=== PATIENT | male | born 1980 | race Caucasian/White ===

== ENCOUNTER 2023-06-10 14:52 | Emergency (ER) | payer OTHER ==
[~2023-06-10] VITALS: Ht 180.3 cm; Wt 112.0 kg
[2023-06-10 15:23] VITALS: BP 161/91; PULSE 116; RESP 18; TEMP 100; O2SAT 98
[2023-06-10] MEDS ORDERED: LIDOCAINE 1% HCL (LOCAL ANESTH.) INJ 20ML MDV IJ ONE (17:30)
[2023-06-10] MEDS ORDERED: PIPERACILLIN-TAZOB 3.375GM 100 ML IV ONE (17:30)
[2023-06-10] MEDS ORDERED: MUPI2OIN2 EX (18:13)
[2023-06-10] MEDS ORDERED: CEPH500C PO (18:13)
[2023-06-10] MEDS ORDERED: IBUP1TAB5 PO (18:13)
[2023-06-10] MEDS ORDERED: ceFAZolin IM 1GM/2.5ML STERILE WATER IM ONE (18:15)
[2023-06-10] MEDS ORDERED: NEOMYCIN-BACITRACIN-POLYM UNITDOSE PKG TOP OINT TOP ONE (18:15)
[2023-06-10] MEDS ORDERED: HYDROcodone-ACET 5/325MG TAB PO ONE (18:15)
[2023-06-10] MEDS ORDERED: TETANUS-DIPTH-ACEL PERTUSSIS 0.5ML SYR Tdap IM ONE (18:15)
== END 2023-06-10 18:59 | disposition home or self-care (01) ==
LOC: ER 14:52
DX: S81.812A Laceration without foreign body, left lower leg, initial encounter (principal); Z79.899 Other long term (current) drug therapy; W45.8XXA Other foreign body or object entering through skin, initial encounter; Y93.89 Activity, other specified; Y92.89 Other specified places as the place of occurrence of the external cause; Y99.8 Other external cause status
CPT/HCPCS: 12005; 73590; 90471; 90715; 96372; 99284; J0690; J2001; J2543

== ENCOUNTER 2023-06-11 16:27 | Emergency (ER) | payer OTHER ==
[~2023-06-11] VITALS: Ht 177.8 cm; Wt 113.7 kg
[~2023-06-11 16:27] MED LIST: CEPH500C PO; IBUP1TAB5 PO; MUPI2OIN2 EX
[2023-06-11 17:10] VITALS: BP 144/98; PULSE 108; RESP 18; TEMP 98.1; O2SAT 94
== END 2023-06-11 17:12 | disposition home or self-care (01) ==
LOC: ER 16:27
DX: S81.811D Laceration without foreign body, right lower leg, subsequent encounter (principal); X58.XXXD Exposure to other specified factors, subsequent encounter

== ENCOUNTER 2023-06-20 10:02 | Inpatient (IN) | payer OTHER ==
[~2023-06-20] VITALS: Ht 177.8 cm; Wt 118.3 kg
[2023-06-20 10:38] LABS: Basophils # (auto) 0.1 10 ^3/uL (0-0.2); Basophils % (auto) 0.7 % (0.0-2.0); Eosinophils # (auto) 0.1 10 ^3/uL (0-0.8); Eosinophils % (auto) 0.8 % (0.0-7.0); Hematocrit 46.1 % (41.0-53.0); Hemoglobin 15.3 g/dL (13.5-17.5); Lymphocytes # (auto) 1.8 10 ^3/uL (0.4-5.4); Lymphocytes % (auto) 13.8 % (10.0-50.0); Mean Corpuscular Hemoglobin 29.7 pg (28.0-32.0); Mean Corpuscular Hgb Conc. 33.3 g/dL (32.0-36.0); Mean Corpuscular Volume 89.1 fL (80.0-100.0); Monocytes # (auto) 1.2 10 ^3/uL (0-1.3); Monocytes % (auto) 9.3 % (0.0-12.0); Neutrophils # (auto) 10.1 10 ^3/uL (1.6-8.6); Neutrophils % (auto) 75.4 % (37.0-80.0); Nucleated Red Blood Cells % 0.1 %; Red Blood Cells 5.17 10^6/uL (4.5-5.90); Red Cell Distribution Width 14.2 % (11.8-14.3); White Blood Cell 13.4 10^3/uL (4.4-10.8)
[2023-06-20 11:08] LABS: Alanine Aminotransferase 22 U/L (7-40); Albumin 4.4 g/dL (3.2-4.8); Alkaline Phosphatase 62 U/L (46-116); Anion Gap 4 (5-15); Aspartate Aminotransferase 12 U/L (13-40); BUN/Creatinine Ratio 6.4 (10.0-20.0); Bilirubin, Total 1.6 mg/dL (0.2-1.0); Blood Urea Nitrogen 8 mg/dL (9-23); Calcium 9.3 mg/dL (8.7-10.4); Carbon Dioxide 27 mmol/L (20-30); Chloride 104 mmol/L (98-107); Glucose 99 mg/dL (74-106); Potassium 4.1 mmol/L (3.5-5.1); Sodium 135 mmol/L (136-145); Total Protein 6.9 g/dL (5.7-8.2)
[2023-06-20] MEDS ORDERED: VANCOMYCIN 1GM/250ML 250 ML IV ONE (11:15)
[2023-06-20] MEDS ORDERED: PIPERACILLIN-TAZOB 3.375GM 100 ML IV ONE (11:15)
[2023-06-20] MEDS ORDERED: SODIUM CHLORIDE 0.9% 1,000 ML IV ONE (11:15)
[2023-06-20] MEDS ORDERED: ENOXAPARIN SOD 100 MG/1 ML SYRINGE SC ONE (12:30)
[2023-06-20 12:46] LABS: INR 0.99 (0.9-1.15); Partial Thromboplastin Time 29.5 SEC (24.5-34.5); Prothrombin Time 10.4 sec (9.3-11.8)
[2023-06-20] MEDS ORDERED: ONDANSETRON HCL 4 MG/2 ML VIAL IV PRN (13:15)
[2023-06-20] MEDS ORDERED: ACETAMINOPHEN 325 MG TAB PO PRN (13:15)
[2023-06-20] MEDS ORDERED: VANCOMYCIN PER PHARMACY 0 MG IV SCH (13:15)
[2023-06-20] MEDS ORDERED: NITROGLYCERIN 0.4 MG SL TAB SL PRN (13:45)
[2023-06-20] MEDS ORDERED: MORPHINE SULFATE INJ 2 MG/ml SYRG IV PRN (13:45)
[2023-06-20] MEDS: SODIUM CHLORIDE 0.9% 1,000 ML IV SCH (14:07)
[2023-06-20] MEDS: HYDROcodone-ACET 5/325MG TAB PO PRN (18:29)
[2023-06-20] MEDS: cefTRIAXone 1GM/50ML D5W 50 ML IV SCH (20:01)
[2023-06-20 20:16] VITALS: PULSE 91; RESP 20; O2SAT 98
[2023-06-20 21:35] VITALS: PULSE 89; RESP 16; O2SAT 0
[2023-06-20 21:40] VITALS: BP 132/85; PULSE 89; RESP 16; TEMP 98; O2SAT 96
[2023-06-20] MEDS: VANCOMYCIN 1GM/250ML 250 ML IV SCH (21:58)
[2023-06-20] MEDS: ASCORBIC ACID 500 MG TAB PO SCH (22:00)
[2023-06-20] MEDS: ENOXAPARIN SOD 120 MG/0.8 ML SYRINGE SC SCH (22:00)
[2023-06-20] MEDS: MORPHINE SULFATE INJ 2 MG/ml SYRG IV PRN (23:04)
[2023-06-21] MEDS: VANCOMYCIN 1GM/250ML 250 ML IV SCH ×3 (05:11→21:11)
[2023-06-21 06:50] LABS: Basophils # (auto) 0 10 ^3/uL (0-0.2); Basophils % (auto) 0.4 % (0.0-2.0); Eosinophils # (auto) 0.1 10 ^3/uL (0-0.8); Eosinophils % (auto) 1.1 % (0.0-7.0); Hematocrit 42.2 % (41.0-53.0); Hemoglobin 14.3 g/dL (13.5-17.5); Lymphocytes # (auto) 1.4 10 ^3/uL (0.4-5.4); Lymphocytes % (auto) 14.3 % (10.0-50.0); Mean Corpuscular Hemoglobin 29.7 pg (28.0-32.0); Mean Corpuscular Hgb Conc. 33.9 g/dL (32.0-36.0); Mean Corpuscular Volume 87.5 fL (80.0-100.0); Monocytes # (auto) 1.1 10 ^3/uL (0-1.3); Monocytes % (auto) 10.7 % (0.0-12.0); Neutrophils # (auto) 7.4 10 ^3/uL (1.6-8.6); Neutrophils % (auto) 73.5 % (37.0-80.0); Red Blood Cells 4.83 10^6/uL (4.5-5.90); Red Cell Distribution Width 14.4 % (11.8-14.3); White Blood Cell 10.1 10^3/uL (4.4-10.8)
[2023-06-21 07:03] LABS: Alanine Aminotransferase 19 U/L (7-40); Alkaline Phosphatase 51 U/L (46-116); Anion Gap 6 (5-15); BUN/Creatinine Ratio 7.3 (10.0-20.0); Blood Urea Nitrogen 7 mg/dL (9-23); Carbon Dioxide 26 mmol/L (20-30); Chloride 108 mmol/L (98-107); Glucose 123 mg/dL (74-106); Potassium 4.2 mmol/L (3.5-5.1); Sodium 140 mmol/L (136-145)
[2023-06-21 07:04] LABS: Aspartate Aminotransferase 13 U/L (13-40); Bilirubin, Total 1.9 mg/dL (0.2-1.0); Total Protein 6.1 g/dL (5.7-8.2)
[2023-06-21 08:00] VITALS: PULSE 85
[2023-06-21 08:54] VITALS: BP 126/84; PULSE 85; RESP 18; TEMP 98.2; O2SAT 96
[2023-06-21] MEDS: ASCORBIC ACID 500 MG TAB PO SCH ×2 (09:06→21:10)
[2023-06-21] MEDS: ENOXAPARIN SOD 120 MG/0.8 ML SYRINGE SC SCH ×2 (09:06→21:05)
[2023-06-21] MEDS: ZINC SULFATE 220mg CAP or TAB PO SCH (09:06)
[2023-06-21] MEDS: cefTRIAXone 1GM/50ML D5W 50 ML IV SCH (09:06)
[2023-06-21] MEDS: SODIUM CHLORIDE 0.9% 1,000 ML IV SCH ×2 (09:07→22:35)
[2023-06-21] MEDS: HYDROcodone-ACET 5/325MG TAB PO PRN ×3 (11:00→21:10)
[2023-06-21 13:00] VITALS: BP 128/88; PULSE 93; RESP 17; TEMP 98.2; O2SAT 97
[2023-06-21 16:37] VITALS: BP 119/85; PULSE 91; RESP 19; TEMP 97.5; O2SAT 98
[2023-06-21 20:00] VITALS: PULSE 99; RESP 17
[2023-06-21] MEDS: DOCUSATE SOD 100 MG CAP PO PRN (21:10)
[2023-06-21 22:00] VITALS: BP 117/79; PULSE 84; RESP 17; TEMP 98.9; O2SAT 96
[2023-06-22] VITALS (10 sets, daily range): BP systolic 120–140; BP diastolic 77–96; PULSE 88–113; RESP 16–22; TEMP 98.1–98.7; O2SAT 95–98
[2023-06-22] MEDS: VANCOMYCIN 1GM/250ML 250 ML IV SCH ×3 (05:00→21:56)
[2023-06-22 05:54] LABS: Basophils # (auto) 0 10 ^3/uL (0-0.2); Basophils % (auto) 0.2 % (0.0-2.0); Eosinophils # (auto) 0.1 10 ^3/uL (0-0.8); Hematocrit 41.7 % (41.0-53.0); Hemoglobin 14.3 g/dL (13.5-17.5); Lymphocytes # (auto) 1.3 10 ^3/uL (0.4-5.4); Lymphocytes % (auto) 13.4 % (10.0-50.0); Mean Corpuscular Hgb Conc. 34.3 g/dL (32.0-36.0); Mean Corpuscular Volume 87.4 fL (80.0-100.0); Monocytes # (auto) 1.1 10 ^3/uL (0-1.3); Monocytes % (auto) 11.2 % (0.0-12.0); Neutrophils # (auto) 7.3 10 ^3/uL (1.6-8.6); Neutrophils % (auto) 74.2 % (37.0-80.0); Nucleated Red Blood Cells % 0.1 %; Red Blood Cells 4.77 10^6/uL (4.5-5.90); Red Cell Distribution Width 14.2 % (11.8-14.3); White Blood Cell 9.8 10^3/uL (4.4-10.8)
[2023-06-22 05:55] LABS: Chloride 105 mmol/L (98-107); Sodium 139 mmol/L (136-145)
[2023-06-22 05:56] LABS: Anion Gap 9 (5-15); Carbon Dioxide 25 mmol/L (20-30)
[2023-06-22 06:01] LABS: BUN/Creatinine Ratio 7.9 (10.0-20.0); Blood Urea Nitrogen 8 mg/dL (9-23); Glucose 96 mg/dL (74-106)
[2023-06-22] MEDS: HYDROcodone-ACET 5/325MG TAB PO PRN ×3 (06:03→16:42)
[2023-06-22 06:12] LABS: INR 0.99 (0.9-1.15); Partial Thromboplastin Time 32.6 SEC (24.5-34.5); Prothrombin Time 10.4 sec (9.3-11.8)
[2023-06-22] MEDS: ASCORBIC ACID 500 MG TAB PO SCH ×2 (09:37→21:56)
[2023-06-22] MEDS: ZINC SULFATE 220mg CAP or TAB PO SCH (09:37)
[2023-06-22] MEDS: cefTRIAXone 1GM/50ML D5W 50 ML IV SCH (09:37)
[2023-06-22] MEDS: ENOXAPARIN SOD 120 MG/0.8 ML SYRINGE SC SCH (09:53)
[2023-06-22] MEDS ORDERED: LIDOCAINE 2%HCL (LOCAL ANESTH.) INJ 20ML MDV ONE (12:22)
[2023-06-22] MEDS ORDERED: IODIXANOL 320MG/ML 100ML BTL IV ONE (12:22)
[2023-06-22] MEDS ORDERED: ANGIOMAX 250 MG VIAL IV ONE (13:47)
[2023-06-22] MEDS ORDERED: SODIUM CHL 0.9% 50 ML ONE (13:48)
[2023-06-22] MEDS ORDERED: fentaNYL CITRATE 100 MCG/2 ML VL ONE (13:48)
[2023-06-22] MEDS ORDERED: MIDAZOLAM HCL 2MG/2ML 2ml VIAL (1mg/ml) ONE (13:48)
[2023-06-22] MEDS: SODIUM CHLORIDE 0.9% 1,000 ML IV SCH (15:15)
[2023-06-22] MEDS: RIVAROXABAN 15 MG TAB PO SCH (21:55)
[2023-06-22] MEDS: MORPHINE SULFATE INJ 2 MG/ml SYRG IV PRN (22:08)
[2023-06-23] VITALS (8 sets, daily range): BP systolic 106–128; BP diastolic 76–94; PULSE 92–112; RESP 16–19; TEMP 97.8–98.5; O2SAT 96–99
[2023-06-23] MEDS: HYDROcodone-ACET 5/325MG TAB PO PRN ×6 (00:53→21:13)
[2023-06-23] MEDS: VANCOMYCIN 1GM/250ML 250 ML IV SCH ×3 (04:39→21:12)
[2023-06-23] MEDS: SODIUM CHLORIDE 0.9% 1,000 ML IV SCH ×2 (07:55→21:30)
[2023-06-23] MEDS: ASCORBIC ACID 500 MG TAB PO SCH ×2 (09:09→21:09)
[2023-06-23] MEDS: ZINC SULFATE 220mg CAP or TAB PO SCH (09:09)
[2023-06-23] MEDS: cefTRIAXone 1GM/50ML D5W 50 ML IV SCH (09:10)
[2023-06-23] MEDS: RIVAROXABAN 15 MG TAB PO SCH ×2 (10:00→21:08)
[2023-06-23] MEDS: DOCUSATE SOD 100 MG CAP PO PRN (17:53)
[2023-06-24] VITALS (7 sets, daily range): BP systolic 112–123; BP diastolic 76–83; PULSE 95–111; RESP 12–22; TEMP 98.1–98.9; O2SAT 97–100
[2023-06-24] MEDS: MORPHINE SULFATE INJ 2 MG/ml SYRG IV PRN (01:18)
[2023-06-24] MEDS: HYDROcodone-ACET 5/325MG TAB PO PRN ×5 (05:41→21:51)
[2023-06-24] MEDS: VANCOMYCIN 1GM/250ML 250 ML IV SCH ×3 (06:30→21:54)
[2023-06-24] MEDS: ZINC SULFATE 220mg CAP or TAB PO SCH (08:06)
[2023-06-24] MEDS: ASCORBIC ACID 500 MG TAB PO SCH ×2 (08:07→21:50)
[2023-06-24] MEDS: SODIUM CHLORIDE 0.9% 1,000 ML IV SCH (08:07)
[2023-06-24] MEDS: DOCUSATE SOD 100 MG CAP PO PRN (08:07)
[2023-06-24] MEDS: RIVAROXABAN 15 MG TAB PO SCH ×2 (09:42→21:50)
[2023-06-24] MEDS: cefTRIAXone 1GM/50ML D5W 50 ML IV SCH (09:45)
[2023-06-25] MEDS: SODIUM CHLORIDE 0.9% 1,000 ML IV SCH (02:56)
[2023-06-25] MEDS: HYDROcodone-ACET 5/325MG TAB PO PRN ×2 (03:06→09:16)
[2023-06-25 04:30] VITALS: BP 114/72; PULSE 108; RESP 12; TEMP 98.8; O2SAT 95
[2023-06-25] MEDS: VANCOMYCIN 1GM/250ML 250 ML IV SCH (06:03)
[2023-06-25 08:00] VITALS: PULSE 112
[2023-06-25 08:30] VITALS: BP 126/77; PULSE 98; RESP 20; TEMP 98.3; O2SAT 99
[2023-06-25] MEDS: RIVAROXABAN 15 MG TAB PO SCH (09:15)
[2023-06-25] MEDS: ASCORBIC ACID 500 MG TAB PO SCH (09:15)
[2023-06-25] MEDS: cefTRIAXone 1GM/50ML D5W 50 ML IV SCH (09:15)
[2023-06-25] MEDS: ZINC SULFATE 220mg CAP or TAB PO SCH (09:15)
[2023-06-25] MEDS: DOCUSATE SOD 100 MG CAP PO PRN (09:15)
[2023-06-25 12:25] VITALS: BP 115/78; PULSE 97; RESP 23; TEMP 98; O2SAT 98
[2023-06-25] MEDS ORDERED: RIVA20TA PO (12:46)
[2023-06-25] MEDS ORDERED: CLIN300C70 PO (12:46)
[2023-06-25] MEDS ORDERED: CEPH500C PO (12:46)
[2023-06-25] MEDS ORDERED: RIVA15TA PO (12:46)
[2023-07-13] MEDS ORDERED: RIVAROXABAN 20 MG TAB PO SCH (18:00)
== END 2023-06-25 14:25 | disposition home or self-care (01) | DRG 271 ==
LOC: ER 10:02 → TELE 13:34 → TELE-WESTW 21:00
PROVIDERS: ADMIT Nurse Practitioner Family; ATTEND Family Medicine
PROC: 04CL3ZZ Extirpation of Matter from Left Femoral Artery, Percutaneous Approach (ICD-10-PCS; principal; 2023-06-22)
PROC: B51CYZZ Fluoroscopy of Left Lower Extremity Veins using Other Contrast (ICD-10-PCS; 2023-06-22)
DX: I82.412 Acute embolism and thrombosis of left femoral vein (principal); L03.116 Cellulitis of left lower limb; E66.9 Obesity, unspecified; Z68.37 Body mass index [BMI] 37.0-37.9, adult; S81.812A Laceration without foreign body, left lower leg, initial encounter; Z86.718 Personal history of other venous thrombosis and embolism
CPT/HCPCS: 36415; 80048; 80053; 80202; 82565; 83605; 85025; 85610; 85730; 87040; 93971; 96361; 96365; 96367; 96372; 97163; 99152; 99153; C1894; G0378; J0696; J2250; J2543; Q9967